=== PATIENT | female | born 1965 | race Caucasian/White ===

== ENCOUNTER → 2019-09-14 08:43 | Outpatient (CLI) | payer BC, SELFPAY ==
--- NOTE | ~2019-09-14 | MMUS_ITS ---
EXAMINATION: MM diagnostic ena BI w kimberly, US breast RT limited, US breast LT complete HISTORY: Follow-up right breast mass TECHNIQUE: Additional 3-D tomosynthesis images of the breasts were performed and synthetic 2-D images were generated. CAD analysis was submitted and interpreted. High resolution bilateral breast ultraso und was performed. COMPARISON: Comparison to multiple prior studies sequentially, with oldest reviewed study dated 01/2017. FINDINGS: MAMMOGRAPHIC FINDINGS: Breast composed of scattered areas of fibroglandular density. There are no suspicious masses, calcifi cations or architectural distortion in either breast to suggest malignancy. Left breast asymmetries a re not significantly changed. ULTRASOUND: Right breast ultrasound: There is a 2 mm cyst at 10:00, 4 cm from the nipple. No suspicious masses to suggest malignancy. Left breast ultrasound: At 1:00, 5 cm from the nipple, there is a 4 mm cyst. At 9:00, 3.5 cm from the nipple, there is an ova l hypoechoic 5 mm mass with circumscribed margins, parallel orientation, no internal vascularity or p osterior features. IMPRESSION: 1. Probable benign left breast mass at 9:00, 3.5 cm from the nipple. No evidence for malignancy in th e right breast. 2. Recommend 6 month follow-up diagnostic left mammogram and ultrasound. BI-RADS category 3, probably benign findings. Reviewed, dictated and finalized at location A. IMPRESSION: 1. Probable benign left breast mass at 9:00, 3.5 cm from the nipple. No evidenc e for malignancy in the right breast. 2. Recommend 6 month follow-up diagnostic left mammogram and ultrasound. BI-RADS category 3, probably benign findings. IMPRESSION: 1. Probable benign left breast mass at 9:00, 3.5 cm from the nipple. No evidenc e for malignancy in the right breast. 2. Recommend 6 month follow-up diagnostic left mammogram and ultrasound. BI-RADS category 3, probably benign findings.
== END ==
PROVIDERS: Visit Provider Obstetrics & Gynecology Gynecology
DX: R92.8 Other abnormal and inconclusive findings on diagnostic imaging of breast (principal)
CPT/HCPCS: 76641; 76642; 77062; 77066; G0279

== ENCOUNTER → 2020-03-12 09:54 | Outpatient (CLI) | payer BC, SELFPAY ==
--- NOTE | ~2020-03-12 | MMUS_ITS ---
EXAMINATION: MM diagnostic ena LT w kimberly, US breast LT limited HISTORY: Six-month follow-up of probable benign left breast 5 mm mass at 9:00 3.5 cm from nipple surg nish TECHNIQUE: Digital ML, MLO and CC full field and spot 3-D tomosynthesis images of the left breast wer e performed and synthetic 2-D images were generated. Rolled medial craniocaudal and rolled lateral cr aniocaudal views. CAD analysis was submitted and interpreted. High resolution upper outer quadrant of the left breast ultrasound was performed. COMPARISON: 09/14/2019 complete left breast ultrasound 06/17/2018 bilateral diagnostic digital mammogram 03/05/2017 bilateral digital screening mammogram BREAST PARENCHYMAL COMPOSITION: There are scattered areas of fibroglandular density. FINDINGS: MAMMOGRAPHIC FINDINGS: No interval new or developing density or any malignant calcification, skin thickening or retraction o f the left breast is evident. ULTRASOUND: 1:00 5 cm from nipple: 1.5 x 4 mm sonolucency without internal vascularity or suspicious posterior sh adowing 1:00 5 cm from nipple: 1.8 x 2.2 mm sonolucency without internal vascularity or suspicious posterior shadowing No suspicious mass or shadowing is noted. No significant new or developing lesion is noted since 09/14/2019. IMPRESSION: 1. No mammographic evidence of malignancy 2. Routine mammographic screening is recommended. BI-RADS Category 2: Benign finding(s). Reviewed, dictated and finalized at location A. IMPRESSION: 1. No mammographic evidence of malignancy 2. Routine mammographic screening is recommended. BI-RADS Category 2: Benign finding(s).
== END ==
PROVIDERS: Visit Provider Obstetrics & Gynecology Gynecology
DX: R92.8 Other abnormal and inconclusive findings on diagnostic imaging of breast (principal)
CPT/HCPCS: 76642; 77061; 77065; G0279

== ENCOUNTER 2020-06-06 07:00 | Outpatient (NON) | payer BC, SELFPAY ==
[2020-06-07 00:27] LABS: SARS-CoV-2 RNA PCR Negative
== END 2020-06-06 07:01 ==
PROVIDERS: PCP Internal Medicine; Visit Provider Physician Assistant
DX: R68.89 Other general symptoms and signs (principal); Z20.828 Contact with and (suspected) exposure to other viral communicable diseases
CPT/HCPCS: 87635; C9803; U0003

== ENCOUNTER 2020-12-28 11:00 | Emergency (ER) | payer BC, SELFPAY ==
--- NOTE | 2020-12-28 11:07 | ED.WOUNDLAC ---
HPI - Wound/Laceration General Chief Complaint: Skin/Abscess/Foreign Body Stated Complaint: INJURED FOOT Time Seen by Provider: 12/28/20 11:07 Source: patient and RN notes reviewed Mode of arrival: ambulatory Limitations: no limitations History of Present Illness HPI narrative: 55-year-old female presents with concern for puncture wound to the right foot. Reports yesterday she was stepping off a ladder when she stepped onto a meg call of a hammer. She reports the wound bled however bleeding has been controlled since last night. She denies any musculoskeletal pain. Denies any redness, swelling surrounding the wound. Denies purulent discharge. Reports she is not up-to-date on her tetanus vaccination. Extremity Location: Right: foot Related Data Home Medications Medication Instructions Recorded Confirmed omeprazole 12/28/20 Allergies Allergy/AdvReac Type Severity Reaction Status Date / Time sulfamethoxazole Allergy Severe FEVER, Verified 12/28/20 11:10 CHILLS latex Allergy Unknown Itching Verified 12/28/20 11:10 sulfamethizole Allergy Unknown Fever Verified 12/28/20 11:10 trimethoprim Allergy Unknown Fever Verified 12/28/20 11:10 Review of Systems Review of Systems: Narrative: CONSTITUTIONAL: Denies malaise, chills, sweats, or fever. SKIN: Reports puncture wound to the right foot MUSCULOSKELETAL: Denies muscle skeletal pain NEUROLOGIC: Denies numbness, weakness All systems reviewed & are unremarkable except as noted in HPI and below PMFSH Family History Family History (Updated 01/24/19 @ 14:17 by DOCTOR UNKNOWN) Mother Depression Patient's mother is in good health Father Patient's father is in good health Patient's father is Sibling Patient's sister is in good health Grandparent Family history of malignant neoplasm of cervix, Onset Age: 40 Other Family history of eczema Family history of irritable bowel syndrome Social History Social History Smoking status: Never smoker Alcohol intake: current Comments At time of signature, agree with nursing past medical, surgical, social and family history. There is no relevant family history pertinent to the presenting complaint Exam Narrative: Exam Narrative: GENERAL: Well-appearing, well-nourished, and in no acute distress. HEAD: Normocephalic, atraumatic. EYES: PERRLA, conjunctivae clear NECK: Supple. CHEST: Speaks in full sentences. No respiratory distress. HEART: Regular rate and rhythm. Normal and equal peripheral pulses. EXTREMITIES: Right foot has normal strength and sensation, normal range of motion. No edema or ecchymosis. 5/5 strength with digit flexion and extension. Normal sensation with sensitivity to light touch and pain. No point tenderness. No skin tenting, no devitalized tissue or atrophy, no trophic changes, no obvious deformity, alignment normal, nearby joints and structures intact. Distal pulses palpable and equal bilaterally, skin warm, dry, pink. Capillary refill less than 3 seconds. SKIN: Warm, dry, no rash. Small puncture wound noted to the pedal aspect of the right foot without surrounding erythema, induration, edema. No purulent drainage noted NEURO: Alert and oriented x3. PSYCH: Normal mood and affect Course Course Emergency Course: Patient is aware of diagnosis, understands and agrees to treatment plan. Anticipatory guidance given. Patient agrees to follow-up as directed and is aware of reasons to seek care at the emergency department. Portions of this record may have been created with voice recognition software Vital Signs Vital signs: Vital Signs Temperature 97.8 F 12/28/20 11:11 Pulse Rate 72 12/28/20 11:11 Respiratory Rate 16 12/28/20 11:11 Blood Pressure 130/84 12/28/20 11:11 Pulse Oximetry 99 12/28/20 11:11 Temperature 97.8 F 12/28/20 11:11 Pulse Rate 72 12/28/20 11:11 Respiratory Rate 16 12/28/20 11:11 Blood Pressure 130/84 12/28/20 11:11 Pul
[2020-12-28 11:11] VITALS: BP 130/84; PULSE 72; RESP 16; TEMP 36.6; O2SAT 99
[2020-12-28] MEDS: TETANUS,DIPHTHERIA,AC PERTUSSIS ADULT (0.5 ML) BOOSTRIX IM (11:29)
== END 2020-12-28 11:50 | disposition home or self-care (01) ==
PROVIDERS: Emergency Provider Nurse Practitioner; PCP Physician Assistant
DX: S91.331A Puncture wound without foreign body, right foot, initial encounter (principal); W45.0XXA Nail entering through skin, initial encounter; Z23 Encounter for immunization; K21.9 Gastro-esophageal reflux disease without esophagitis
CPT/HCPCS: 90471; 90715; 99212; G0463

== ENCOUNTER → 2021-04-21 10:15 | Outpatient (CLI) | payer BC, SELFPAY ==
--- NOTE | ~2021-04-21 | XR_ITS ---
EXAMINATION: XR abdomen/kub 1V INDICATION: Left flank pain TECHNIQUE: Supine views of the abdomen were obtained on 2 radiographs. COMPARISON: None FINDINGS: There is a 2 mm stone of the right mid kidney. No left-sided stones are identified. No ston es project along the expected courses of the ureters or bladder. The visualized lung bases are clear. There is moderate lumbar spondylosis at L4-5. The bowel gas pattern is normal. IMPRESSION: 1. Right nephrolithiasis. Reviewed, dictated and finalized at location A. IMPRESSION: 1. Right nephrolithiasis.
--- NOTE | ~2021-04-21 | CT_ITS ---
EXAMINATION: CT abdomen pelvis wo con DATE: 04/21/2021 10:39 INDICATION: Left flank pain TECHNIQUE: Computed tomography (CT) of the abdomen and pelvis was performed without intravenous contr ast. The dose-length product (DLP) was 698.68 mGy-cm. Automated exposure control and iterative recons truction technique were employed. COMPARISON: 09/16/2011 FINDINGS: The lung bases are clear. The heart size is normal. The distal esophagus is somewhat patulo us and contains ingested material. Cysts of the liver measure up to 3.5 cm in the right hepatic lobe. The spleen, pancreas, and adrenal glands are normal. The gallbladder is decompressed but otherwise u nremarkable in appearance. There is a 2 mm nonobstructing stone of the right mid kidney. The left kid brennan is unremarkable. No stones are present in the ureters or bladder. There is no hydronephrosis or h ydroureter. The appendix is normal. No pathologically enlarged abdominal or pelvic lymph nodes are id entified. There is no free intraperitoneal gas or evidence of bowel obstruction. There is moderate shira mbar spondylosis at L4-5. IMPRESSION: 1. No CT correlate for the patient's symptoms. 2. Nonobstructing right nephrolithiasis. Reviewed, dictated and finalized at location A.
== END ==
PROVIDERS: PCP Physician Assistant; Visit Provider Nurse Practitioner Family
DX: N20.0 Calculus of kidney (principal)
CPT/HCPCS: 74018; 74176

== ENCOUNTER → 2021-05-27 11:19 | Outpatient (CLI) | payer BC, SELFPAY ==
--- NOTE | ~2021-05-27 | MM_ITS ---
EXAMINATION: MM screening ena BI w kimberly HISTORY: Screening mammogram TECHNIQUE: Craniocaudal and mediolateral oblique 3-D tomosynthesis images were obtained and synthetic 2-D images were generated. CAD analysis was submitted and interpreted. COMPARISON: 03/12/2020 diagnostic left mammogram and limited left breast ultrasound 09/14/2019 left complete ultrasound and right Limited breast ultrasound 09/14/2019 bilateral diagnostic mammogram 06/17/2018 bilateral diagnostic mammogram and limited right breast ultrasound 03/26/2017 diagnostic right mammogram and limited right breast ultrasound 03/05/2017 bilateral screening mammogram BREAST PARENCHYMAL COMPOSITION: There are scattered areas of fibroglandular density. FINDINGS: Stable mild fibroglandular asymmetry, not significantly changed since 03/05/2017. There is no evidence of suspicious mass, calcification, or architectural distortion to suggest malignancy in eit her breast. There has been no suspicious interval change. IMPRESSION: 1. No mammographic evidence of malignancy. 2. Recommend routine screening mammography in one year. BI-RADS Category 2: Benign finding(s). Reviewed, dictated and finalized at location A. [employer]
== END ==
PROVIDERS: Visit Provider Obstetrics & Gynecology Gynecology
DX: Z12.31 Encounter for screening mammogram for malignant neoplasm of breast (principal)
CPT/HCPCS: 77063; 77067

== ENCOUNTER → 2021-07-09 09:20 | Outpatient (CLI) | payer BC, SELFPAY ==
--- NOTE | ~2021-07-09 | DEXA_ITS ---
Bone Density Report Name: ALENA ROSALES Age: 55 Sex: Female Ethnicity: White Date of : 1965 Indication: postmenopausal; screening for osteoporosis; height loss; Referring Provider: KAE KEANE Study: Bone densitometry was performed. Exam Date: July 09, 2021 Accession number: [id number] Bone Density: Region BMD T-score Z-score Classification AP Spine (L1-L4) 0.986 -0.6 0.4 Normal Femoral Neck (Left) 0.826 -0.2 0.8 Normal Total Hip (Left) 1.004 0.5 1.1 Normal Femoral Neck (Right) 0.826 -0.2 0.8 Normal Total Hip (Right) 0.952 0.1 0.7 Normal Total Hip Mean 0.978 0.3 0.9 Normal World Health Organization criteria for BMD impression classify patients as: Normal (T-score at or above -1.0), Osteopenia (T-score between -1.0 and -2.5), or Osteoporosis (T-score at or below -2.5). 10-year Fracture Risk: FRAX not reported because: All T-scores for Spine Total, Hip Total, Femoral Neck at or above -1.0 Clinical Information Provided by Patient: Has used the following medications: Vitamin D, Calcium, MTV Patient maximum height was 66.5 Menopause Age: 54 Drinks caffeinated beverages Onset of menses at age 16 Number of children 3 Impression: The patient has normal bone mass. Discussion: BONE DENSITY IS ABOVE THE MINIMUM DESIRABLE LEVEL AT ALL SKELETAL SITES TESTED. This patient?s bone mineral density is above the minimum desirable level (T-score -1.0 or better) at all sites measured. The patient should follow a healthful lifestyle (good nutrition with adequate calcium and vitamin D, and appropriate weight-bearing exercise). Follow-Up: Consider repeating this study in 5 years or sooner if there is some new clinical indication. Reported by: GAB on 07/09/2021 9:51:00 AM. Reviewed, dictated and finalized at location [facility]
== END ==
PROVIDERS: Visit Provider Obstetrics & Gynecology Gynecology
DX: Z78.0 Asymptomatic menopausal state (principal)
CPT/HCPCS: 77080

== ENCOUNTER 2022-03-13 07:28 | Emergency (ER) | payer BC, SELFPAY ==
--- NOTE | ~2022-03-13 | XR_ITS ---
EXAMINATION: CT abdomen pelvis wo con, XR abdomen/kub 1V DATE: 03/13/2022 09:43 INDICATION: Right flank pain, nausea and vomiting TECHNIQUE: 1. Computed tomography (CT) of the abdomen and pelvis was performed without intravenous contrast. Aut omated exposure control and iterative reconstruction technique were employed. The dose-length product was 363.82 mGy-cm. 2. AP view of the abdomen and pelvis was obtained on 2 images. COMPARISON: 04/21/2021 FINDINGS: CT: Lung bases are clear. Heart size is normal. No pericardial or pleural effusion. Couple cysts in the r ight hepatic lobe measuring 3.7 cm and 5 mm. Gallbladder, spleen, pancreas and bilateral adrenal glan ds are normal. 2-3 mm stone at the right ureterovesicular junction with mild right hydroureteronephro sis. Left kidney is normal. No other urolithiasis. Bowels including the appendix are normal. Decompre ssed bladder is normal. The anteverted uterus and bilateral adnexa are normal. No free intraperitonea l gas or fluid. No pathologically enlarged abdominal or pelvic lymphadenopathy. Mild lower lumbar lev ocurvature with moderate to severe right-sided predominant disc height loss at L4-L5. KUB: Subtle small density projecting slightly to the right of the coccyx which could represent the stone a t the right ureterovesicular junction. Normal bowel gas pattern. IMPRESSION: 1. 2-3 mm right ureterovesicular junction stone with mild right hydroureteronephrosis. Reviewed, dictated and finalized at location A. IMPRESSION: 1. 2-3 mm right ureterovesicular junction stone with mild right hydroureteronep hrosis.
[2022-03-13 07:32] VITALS: BP 130/80; PULSE 80; RESP 18; TEMP 36.6; O2SAT 99
--- NOTE | 2022-03-13 07:48 | ED.GENADULT ---
HPI - General Adult General Chief complaint: Abdominal Pain Stated complaint: right flank pain with nausea Time Seen by Provider: 03/13/22 07:43 Source: patient and RN notes reviewed Mode of arrival: ambulatory Limitations: no limitations History of Present Illness HPI narrative: This is a 56 year old female who presents for evaluation of right flank pain. She developed pain 35 minutes ago when she woke up . She describes her pain as sharp pain that is waxing and waning. Her pain is not as bad currently. She has associated nausea with her pain. She denies any fever, chills, urinary symptoms. She has not taken any medication for her pain. She assumes this pain is due to a kidney stone. Related Data Home Medications Medication Instructions Recorded Confirmed omeprazole 20 mg capsule,delayed 20 mg PO DAILY 12/28/20 03/03/22 release omeprazole 10 mg capsule,delayed mg 03/13/22 release omeprazole 20 mg capsule,delayed mg 03/13/22 release Allergies Allergy/AdvReac Type Severity Reaction Status Date / Time sulfamethoxazole Allergy Severe FEVER, Verified 03/13/22 07:34 CHILLS latex Allergy Unknown Itching Verified 03/13/22 07:34 sulfamethizole Allergy Unknown Fever Verified 03/13/22 07:34 trimethoprim Allergy Unknown Fever Verified 03/13/22 07:34 gluten Allergy Other Verified 03/13/22 07:34 Review of Systems Review of Systems: All systems reviewed & are unremarkable except as noted in HPI and below Constitutional: Constitutional: Denies chills, Denies fatigue and Denies fever(s) Cardiovascular: Cardiovascular: Denies chest pain and Denies rapid heart rate Gastrointestinal: Gastrointestinal: Reports abdominal pain, Reports nausea and Denies vomiting Genitourinary: Genitourinary: Denies hematuria, Denies nocturia, Denies dysuria and Reports flank pain Musculoskeletal: Musculoskeletal: Reports back pain [facility] Past Medical History Medical History (Updated 03/13/22 @ 10:41 by Bailey Delgadillo MD) Celiac disease Surgical History Surgical History (Updated 03/13/22 @ 07:49 by Bailey Delgadillo MD) History of tonsillectomy Family History Family History Mother Depression Patient's mother is in good health Father Patient's father is in good health Patient's father is Sibling Patient's sister is in good health Grandparent Family history of malignant neoplasm of cervix, Onset Age: 40 Other Family history of eczema Family history of irritable bowel syndrome Social History Social History Smoking status: Never smoker Alcohol intake: current Exam Const: General: no acute distress and alert Nutritional Appearance: well nourished Orientation/consciousness: patient oriented x3 Limitations: no limitations HENMT: Head: normal to inspection Eyes: EOM: EOMs intact bilaterally Chest: Chest palpation & inspection: normal inspection of the chest Resp: Effort & Inspection: normal respiratory effort Auscultation: clear to auscultation bilaterally Cardio: Rate: regular rate Rhythm: regular rhythm Heart sounds: no murmurs GI: GI Palp: Yes Soft to palpation, Yes Tenderness to palpation present (GI) (Right flank tendernes), No Guarding due to palpation present (GI) and No Rigid due to palpation Auscultation: normal bowel sounds Back/Spine/Pelvis: Back: no CVA tenderness Skin: General skin exam: normal color Rashes: no rashes Wounds: no wounds Neuro: General: patient oriented x3, moves all extremities and CN's II-XI intact bilaterally Cranial nerves: Yes Nystagmus not present Extrem: General: normal to inspection Psych: Mental Status: mental status grossly normal Affect: normal affect Attitude: cooperative Course Reevaluation(s) Reevaluation #1: PAtient is sitting in bed comfortable and no acute distress. I Discussed CT findings an
[2022-03-13 08:09] LABS: Basophils Percent Auto 0.3 % (0.2-1.2); Eosinophils Absolute Auto 0.1 K/mm3 (0-0.3); Hematocrit 43.5 % (37.0-47.0); Hemoglobin 14.5 g/dL (12.0-15.0); Immature Granulocyte Absolute 0.02 K/mm3 (0.00-0.031); Immature Granulocyte Percent A 0.3 % (0-0.5); Lymphocytes Absolute Auto 2.19 K/mm3 (0.9-3.2); Mean Corpuscular HGB Conc 33.3 g/dl (32-36); Mean Corpuscular Hemoglobin 29.1 pg (26-34); Mean Corpuscular Volume 87.2 fl (80-100); Mean Platelet Volume 9.6 fl (7.4-10.4); Monocytes Absolute Auto 0.7 K/mm3 (0.1-0.6); Monocytes Percent Auto 9.6 % (2.6-8.5); Neutrophils Absolute Auto 3.8 K/mm3 (1.3-6.7); Neutrophils Percent Auto 55.8 % (45.5-73.1); Platelet Count Result 229 k/mm3 (150-375); Red Blood Count 4.99 M/mm3 (4.2-5.4); Red Cell Distribution Width 13.9 % (11.5-14.5); White Blood Count 6.9 K/mm3 (4.5-10.0)
[2022-03-13] MEDS: ONDANSETRON INJ 4 MG/2 ML VIAL IV PUSH ×2 (08:18→08:55)
[2022-03-13] MEDS: LACTATED RINGERS 1,000 ML 999 ML IV CONT (08:19)
[2022-03-13 08:30] LABS: Alanine Aminotransferase 27 U/L (6-35); Albumin Level 4.7 g/dL (3.5-5.1); Alkaline Phosphatase 68 U/L (38-126); Anion Gap 16 mmol/L (8-16); Aspartate Amino Transferase 28 U/L (14-36); Bilirubin,Total 0.7 mg/dL (0.2-1.3); Blood Urea Nitrogen 10 mg/dL (7-17); Calcium 9.2 mg/dL (8.4-10.2); Carbon Dioxide 25 mmol/L (22-30); Chloride 103 mmol/L (98-107); Estimated CRCL calculation 66 ml/min; Estimated Glomerular Filt Rate > 60; Glucose 106 mg/dL (65-110); Lipase 102 U/L (23-300); Potassium 3.7 mmol/L (3.4-5.0); Sodium 144 mmol/L (137-145)
[2022-03-13 08:41] LABS: Appearance Urine Clear (Clear); Bilirubin Urine 1+ (Negative); Blood Urine 2+ (Negative); Color Urine Yellow (Yellow); Glucose Urine UA Negative (Negative); Ketones Urine Negative (Negative); Leukocyte Esterase Ur Trace LEU/UL (Negative); Nitrate Urine Negative (Negative); Protein Urine 1+ mg/dL (Negative); Specific Grav Ur >= 1.030 (1.001-1.035); Urobilinogen Urine 0.2 mg/dL (<2.0)
[2022-03-13 08:44] LABS: Bacteria Urine Trace /hpf; Mucus Urine Moderate /lpf; RBC Urine >75 /hpf (0-2); Squamous Epithelial Cell Urine Few /hpf (Few)
[2022-03-13 08:47] LABS: Add Urine Microscopic? YES
[2022-03-13] MEDS: MORPHINE SULFATE (*CRX) 4 MG/ML INJ IV PUSH (09:00)
--- NOTE | 2022-03-13 09:39 | PC.NURSE ---
PT STATES SHE WILL ATTEMPT TO LIE FLAT ON CT TABLE FOR IMAGING.
[2022-03-13] MEDS: KETOROLAC 30 MG/ML VIAL (*BKC) IV PUSH (09:55)
[2022-03-13 11:05] VITALS: BP 122/69; PULSE 64; RESP 16; O2SAT 100
== END 2022-03-13 11:05 | disposition home or self-care (01) ==
PROVIDERS: Emergency Provider General Practice; PCP Physician Assistant
DX: N13.2 Hydronephrosis with renal and ureteral calculous obstruction (principal); E86.0 Dehydration; K90.0 Celiac disease
CPT/HCPCS: 36415; 74018; 74176; 80053; 81001; 81025; 83690; 85025; 87086; 87088; 96361; 96365; 96375; 96376; 99284; J0131; J1885; J2270; J2405; J7120

== ENCOUNTER 2022-03-14 13:55 | Emergency (ER) | payer BC, SELFPAY ==
--- NOTE | ~2022-03-14 | XR_ITS ---
EXAM: XR abdomen/kub 1V DATE: 03/14/2022 16:05 HISTORY: right flank pain, n/v . COMPARISON: CT abdomen pelvis 03/13/2022. X-ray abdomen 03/13/2022 FINDINGS: Normal bowel gas pattern. No organomegaly. 3 mm calcification to the right of the coccyx. Regional bones and soft tissues normal for age. IMPRESSION: Likely stable right UVJ stone. Reviewed, dictated and finalized at location K.
[2022-03-14 13:56] VITALS: BP 144/78; PULSE 69; RESP 14; TEMP 36.7; O2SAT 100
[2022-03-14 14:13] LABS: Basophils Percent Auto 0.1 % (0.2-1.2); Eosinophils Percent Auto 0.2 % (0-4.4); Hemoglobin 13.2 g/dL (12.0-15.0); Immature Granulocyte Absolute 0.02 K/mm3 (0.00-0.031); Immature Granulocyte Percent A 0.2 % (0-0.5); Lymphocytes Absolute Auto 1.32 K/mm3 (0.9-3.2); Mean Corpuscular Hemoglobin 28.8 pg (26-34); Mean Corpuscular Volume 87.3 fl (80-100); Mean Platelet Volume 9.2 fl (7.4-10.4); Monocytes Absolute Auto 0.8 K/mm3 (0.1-0.6); Monocytes Percent Auto 9.1 % (2.6-8.5); Neutrophils Absolute Auto 6.1 K/mm3 (1.3-6.7); Neutrophils Percent Auto 74.4 % (45.5-73.1); Platelet Count Result 174 k/mm3 (150-375); Red Blood Count 4.58 M/mm3 (4.2-5.4); Red Cell Distribution Width 13.7 % (11.5-14.5); White Blood Count 8.2 K/mm3 (4.5-10.0)
[2022-03-14 14:20] LABS: Appearance Urine Clear (Clear); Bilirubin Urine 1+ (Negative); Blood Urine 2+ (Negative); Color Urine Yellow (Yellow); Glucose Urine UA Negative (Negative); Ketones Urine Trace mg/dL (Negative); Leukocyte Esterase Ur Trace LEU/UL (Negative); Nitrate Urine Negative (Negative); Protein Urine 2+ mg/dL (Negative); Specific Grav Ur 1.015 (1.001-1.035); Urobilinogen Urine 0.2 mg/dL (<2.0); pH Urine 6.5 (5.0-9.0)
[2022-03-14 14:23] LABS: Alanine Aminotransferase 26 U/L (6-35); Albumin Level 4.3 g/dL (3.5-5.1); Alkaline Phosphatase 70 U/L (38-126); Anion Gap 11 mmol/L (8-16); Aspartate Amino Transferase 29 U/L (14-36); Bilirubin,Total 0.6 mg/dL (0.2-1.3); Blood Urea Nitrogen 15 mg/dL (7-17); Calcium 9.6 mg/dL (8.4-10.2); Carbon Dioxide 27 mmol/L (22-30); Chloride 101 mmol/L (98-107); Estimated CRCL calculation 45 ml/min; Estimated Glomerular Filt Rate 47; Glucose 111 mg/dL (65-110); Lipase 81 U/L (23-300); Potassium 4.1 mmol/L (3.4-5.0); Sodium 139 mmol/L (137-145)
[2022-03-14 14:24] LABS: Mucus Urine Few /lpf; RBC Urine >75 /hpf (0-2); Squamous Epithelial Cell Urine Occasional /hpf (Few); WBC Urine 21-30 /hpf
[2022-03-14 14:30] LABS: Add Urine Microscopic? YES
[2022-03-14] MEDS: SODIUM CHLORIDE 0.9% IV 1,000 ML 999 ML IV CONT ×2 (15:17→15:57)
[2022-03-14] MEDS: METOCLOPRAMIDE HCL INJ 10 MG/2 ML VIAL IV PUSH (15:18)
--- NOTE | 2022-03-14 15:51 | ED.NAVMDI ---
HPI - Nausea/Vomiting/Diarrhea General Chief complaint: Nausea/Vomiting/Diarrhea Stated complaint: vomiting Time Seen by Provider: 03/14/22 14:41 Source: patient, RN notes reviewed and old records reviewed Mode of arrival: ambulatory Limitations: no limitations History of Present Illness HPI Narrative: This is a 56 year old female who presents for evaluation of nausea and vomiting. Patient was diagnosed with right distal ureteral calculus yesterday, and she was discharged with antiemetic and pain medication. She reports developing worsening pain with nausea and vomiting at 4 am. She took toradol at that time and she took hydrocodone at 10 am this morning. SHe denies she has been unable keep anything down since this morning. She reports mild dull ache to right flank , but she reports her pain is not that bad currently. She reports headache from vomiting today. She denies fever or chills. Related Data Home Medications Medication Instructions Recorded Confirmed omeprazole 20 mg capsule,delayed 20 mg PO DAILY 12/28/20 03/03/22 release omeprazole 10 mg capsule,delayed mg 03/13/22 release omeprazole 20 mg capsule,delayed mg 03/13/22 release Allergies Allergy/AdvReac Type Severity Reaction Status Date / Time sulfamethoxazole Allergy Severe FEVER, Verified 03/14/22 14:42 CHILLS latex Allergy Unknown Itching Verified 03/14/22 14:42 sulfamethizole Allergy Unknown Fever Verified 03/14/22 14:42 trimethoprim Allergy Unknown Fever Verified 03/14/22 14:42 gluten Allergy Other Verified 03/14/22 14:42 Review of Systems Review of Systems: All systems reviewed & are unremarkable except as noted in HPI and below Constitutional: Constitutional: Denies chills, Denies fatigue and Denies fever(s) Cardiovascular: Cardiovascular: Denies chest pain Respiratory: Respiratory: Denies chest congestion and Denies cough Gastrointestinal: Gastrointestinal: Denies abdominal pain, Reports nausea and Reports vomiting Genitourinary: Genitourinary: Denies dysuria and Reports flank pain Musculoskeletal: Musculoskeletal: Reports back pain Neurologic: Denies weakness PMF Past Medical History Medical History (Updated 03/14/22 @ 17:31 by Bailey Delgadillo MD) Celiac disease Surgical History Surgical History (Updated 03/13/22 @ 07:49 by Bailey Delgadillo MD) History of tonsillectomy Family History Family History Mother Depression Patient's mother is in good health Father Patient's father is in good health Patient's father is Sibling Patient's sister is in good health Grandparent Family history of malignant neoplasm of cervix, Onset Age: 40 Other Family history of eczema Family history of irritable bowel syndrome Social History Social History Smoking status: Never smoker Alcohol intake: current Exam Const: General: no acute distress Nutritional Appearance: well nourished Orientation/consciousness: patient oriented x3 Limitations: no limitations HENMT: Head: normal to inspection Eyes: EOM: EOMs intact bilaterally Resp: Effort & Inspection: normal respiratory effort GI: GI Palp: Yes Soft to palpation, No Tenderness to palpation present (GI), No Guarding due to palpation present (GI) and No Rigid due to palpation Auscultation: normal bowel sounds : General: Yes CVA tenderness on the right Back/Spine/Pelvis: Back: CVA tenderness Skin: General skin exam: normal color Rashes: no rashes Wounds: no wounds Neuro: General: patient oriented x3, moves all extremities and CN's II-XI intact bilaterally Extrem: General: normal to inspection Psych: Mental Status: mental status grossly normal Affect: normal affect Attitude: cooperative Course Reevaluation(s) Reevaluation #1: Patient reports she feels much better. She denies nausea or pain.
[2022-03-14] MEDS: KETOROLAC 30 MG/ML VIAL (*BKC) IV PUSH (15:56)
[2022-03-14] MEDS: diphenhydrAMINE HCl INJ 50 MG/ML VIAL 25 MG IV PUSH (15:58)
[2022-03-14] MEDS: TAMSULOSIN HCL 0.4 MG CAPSULE PO (17:06)
[2022-03-14 17:39] VITALS: BP 132/74; PULSE 82; RESP 16; O2SAT 99
== END 2022-03-14 17:41 | disposition home or self-care (01) ==
PROVIDERS: Emergency Provider General Practice; PCP Physician Assistant
DX: R11.2 Nausea with vomiting, unspecified (principal); N23 Unspecified renal colic; K90.0 Celiac disease
CPT/HCPCS: 36415; 74018; 80053; 81001; 81025; 83690; 85025; 87086; 96361; 96374; 96375; 99284; A9270; J1200; J1885; J2765; J7030

== ENCOUNTER 2022-03-19 11:19 | Emergency (ER) | payer BC, SELFPAY ==
--- NOTE | ~2022-03-19 | CT_ITS ---
EXAMINATION: CT brain wo con DATE: 03/19/2022 13:22 INDICATION: Severe headache for several days TECHNIQUE: Computed tomography (CT) of the head was performed without intravenous contrast. The mA wa s adjusted according to patient size. Iterative reconstruction technique was employed. Exam dose: 60 5.33 mGy-cm total exam DLP. COMPARISON: None FINDINGS: No intracranial mass lesion or hemorrhage or cerebrovascular accident. No midline shift or mass effect. Normal davenport-white matter differentiation. Normal ventricular size. No subdural or epidural hematoma. The orbital contents are unremarkable. Mastoid air cells and included paranasal sinuses are unremarkable. No fracture or bone destruction of the cranial vault. IMPRESSION: No significant abnormality Reviewed, dictated and finalized at [facility]. Reviewed, dictated and finalized at location [facility]. IMPRESSION: No significant abnormality
[2022-03-19 11:33] VITALS: BP 150/79; PULSE 69; RESP 16; TEMP 36.7; O2SAT 100
--- NOTE | 2022-03-19 12:31 | ED.HA ---
HPI - Headache General Chief Complaint: Headache Stated Complaint: Headache Time Seen by Provider: 03/19/22 12:02 History of Present Illness HPI Narrative: Patient is a 56-year-old female with a history of GERD presenting with a headache. Patient states that she was seen here about a week ago and was diagnosed with a kidney stone. She was able to go home but then she unfortunately had to return after developing a headache after throwing up. She improved and was able to go home. She passed the stone about 4 days ago. Last night, patient again became very nauseated and thought she was going to vomit. She instead developed the worst headache of her life. States that it has been throbbing constantly since then. She called her PCP this morning who advised she come in for evaluation. Patient denies fevers, numbness or weakness, vision changes, nuchal rigidity. No chest pain, cough, shortness of breath, abdominal pain, dysuria, diarrhea, leg swelling. Related Data Home Medications Medication Instructions Recorded Confirmed omeprazole 20 mg capsule,delayed 20 mg PO DAILY 12/28/20 03/03/22 release omeprazole 10 mg capsule,delayed mg 03/13/22 release omeprazole 20 mg capsule,delayed mg 03/13/22 release Allergies Allergy/AdvReac Type Severity Reaction Status Date / Time sulfamethoxazole Allergy Severe FEVER, Verified 03/19/22 12:44 CHILLS latex Allergy Unknown Itching Verified 03/19/22 12:44 sulfamethizole Allergy Unknown Fever Verified 03/19/22 12:44 trimethoprim Allergy Unknown Fever Verified 03/19/22 12:44 gluten Allergy Other Verified 03/19/22 12:44 Review of Systems Review of Systems: All systems reviewed & are unremarkable except as noted in HPI and below PMFSH Past Medical History Medical History Celiac disease Surgical History Surgical History History of tonsillectomy Family History Family History Mother Depression Patient's mother is in good health Father Patient's father is in good health Patient's father is Sibling Patient's sister is in good health Grandparent Family history of malignant neoplasm of cervix, Onset Age: 40 Other Family history of eczema Family history of irritable bowel syndrome Social History Social History Smoking status: Never smoker Alcohol intake: current Exam Narrative: GENERAL: Well-appearing, well-nourished, and in no acute distress. HEAD: Normocephalic, atraumatic. EYES: PERRLA and EOMI. ENT: Nares clear, no rhinorrhea or epistaxis. Mucous membranes moist. NECK: Supple. CHEST: Clear to auscultation. No respiratory distress. HEART: Regular rate and rhythm. No murmur heard. Normal peripheral pulses. ABDOMEN: Soft, nontender, nondistended, normal active bowel sounds. EXTREMITIES: Normal range of motion. No edema. SKIN: Warm, dry, no rash. NEURO: Alert and oriented x3. R sided cranial nerve 7 deficits which are baseline per patient, no other focal deficits PSYCH: Normal mood and affect. Course Vital Signs Vital signs: Vital Signs Temperature 98.1 F 03/19/22 11:33 Pulse Rate 69 03/19/22 11:33 Respiratory Rate 16 03/19/22 11:33 Blood Pressure 150/79 H 03/19/22 11:33 Pulse Oximetry 100 03/19/22 11:33 Temperature 98.1 F 03/19/22 11:33 Pulse Rate 64 03/19/22 16:36 Respiratory Rate 16 03/19/22 16:36 Blood Pressure 137/81 03/19/22 16:36 Pulse Oximetry 100 03/19/22 16:36 Oxygen Delivery Room Air 03/19/22 12:42 MDM - Headache MDM Narrative Medical decision making narrative: Patient is a 56-year-old female presenting with a headache. Patient is hypertensive, otherwise vitals are within normal limits. Exam remarkable for the above. Plan for labs, C
[2022-03-19 12:42] VITALS: BP 172/93; PULSE 66; RESP 20; O2SAT 99
[2022-03-19] MEDS: diphenhydrAMINE HCl INJ 50 MG/ML VIAL IV PUSH (13:12)
[2022-03-19] MEDS: PROCHLORPERAZINE EDISYLATE 10 MG/2 ML VIAL IV PUSH (13:12)
[2022-03-19] MEDS: KETOROLAC 15 MG/ML VIAL (*BKC) IV PUSH (13:12)
[2022-03-19 13:15] LABS: Basophils Percent Auto 0.3 % (0.2-1.2); Eosinophils Absolute Auto 0.1 K/mm3 (0-0.3); Eosinophils Percent Auto 1.6 % (0-4.4); Hematocrit 42.5 % (37.0-47.0); Hemoglobin 13.7 g/dL (12.0-15.0); Immature Granulocyte Absolute 0.02 K/mm3 (0.00-0.031); Immature Granulocyte Percent A 0.3 % (0-0.5); Lymphocytes Absolute Auto 1.85 K/mm3 (0.9-3.2); Lymphocytes Percent Auto 29.7 % (18.3-44.2); Mean Corpuscular HGB Conc 32.2 g/dl (32-36); Mean Corpuscular Hemoglobin 28.8 pg (26-34); Mean Corpuscular Volume 89.3 fl (80-100); Mean Platelet Volume 9.4 fl (7.4-10.4); Monocytes Absolute Auto 0.6 K/mm3 (0.1-0.6); Monocytes Percent Auto 9.8 % (2.6-8.5); Neutrophils Absolute Auto 3.6 K/mm3 (1.3-6.7); Neutrophils Percent Auto 58.3 % (45.5-73.1); Platelet Count Result 213 k/mm3 (150-375); Red Blood Count 4.76 M/mm3 (4.2-5.4); Red Cell Distribution Width 13.7 % (11.5-14.5); White Blood Count 6.2 K/mm3 (4.5-10.0)
[2022-03-19] MEDS: SODIUM CHLORIDE 0.9% IV 1,000 ML 999 ML IV CONT (13:16)
[2022-03-19 13:25] LABS: Alanine Aminotransferase 26 U/L (6-35); Albumin Level 4.5 g/dL (3.5-5.1); Alkaline Phosphatase 76 U/L (38-126); Anion Gap 12 mmol/L (8-16); Aspartate Amino Transferase 25 U/L (14-36); Bilirubin,Total 0.5 mg/dL (0.2-1.3); Blood Urea Nitrogen 12 mg/dL (7-17); Calcium 9.5 mg/dL (8.4-10.2); Carbon Dioxide 25 mmol/L (22-30); Chloride 104 mmol/L (98-107); Estimated CRCL calculation 74 ml/min; Estimated Glomerular Filt Rate > 60; Glucose 93 mg/dL (65-110); Potassium 4.3 mmol/L (3.4-5.0); Sodium 141 mmol/L (137-145)
[2022-03-19 14:11] VITALS: BP 152/73; PULSE 51; RESP 18; O2SAT 99
[2022-03-19 16:36] VITALS: BP 137/81; PULSE 64; RESP 16; O2SAT 100
== END 2022-03-19 16:38 | disposition home or self-care (01) ==
PROVIDERS: Emergency Provider Emergency Medicine; PCP Physician Assistant
DX: R51.9 Headache, unspecified (principal); K90.0 Celiac disease; Z87.442 Personal history of urinary calculi
CPT/HCPCS: 36415; 70450; 80053; 85025; 96361; 96374; 96375; 99284; J0780; J1100; J1200; J1885; J7030

== ENCOUNTER → 2022-04-01 11:43 | Outpatient (CLI) | payer BC, SELFPAY ==
--- NOTE | ~2022-04-01 | US_ITS ---
EXAMINATION: US retroperitoneal comp DATE: 04/01/2022 11:59 INDICATION: Right ureteral stone which passed to weeks prior. TECHNIQUE: Multiple ultrasound grayscale images of the kidneys were obtained. COMPARISON: CT dated 03/13/2022 FINDINGS: The right kidney measures 9.7 x 4.4 x 5.4 cm. The left kidney measures 10.0 x 4.5 x 4.2 cm. The kidne ys demonstrate normal echogenicity. There is no hydronephrosis in either kidney. No stones identifie d. The bladder is normal. IMPRESSION: 1. Normal kidneys without hydronephrosis. Reviewed, dictated and finalized at location [facility].
== END ==
PROVIDERS: PCP Internal Medicine; Visit Provider Nurse Practitioner Family
DX: N20.1 Calculus of ureter (principal)
CPT/HCPCS: 76770

== ENCOUNTER → 2022-06-26 15:41 | Outpatient (CLI) | payer BC, SELFPAY ==
--- NOTE | ~2022-06-26 | MM_ITS ---
EXAMINATION: MM screening ena BI w kimberly HISTORY: Screening mammogram TECHNIQUE: Craniocaudal and mediolateral oblique 3-D tomosynthesis images were obtained and synthetic 2-D images were generated. CAD analysis was submitted and interpreted. COMPARISON: 05/27/2021 bilateral screening mammogram examination 03/12/2020 diagnostic left mammogram and left breast ultrasound examination 09/14/2019 bilateral diagnostic mammogram and bilateral breast ultrasound examination 03/05/2017 bilateral screening mammogram BREAST PARENCHYMAL COMPOSITION: There are scattered areas of fibroglandular density. FINDINGS: Stable fibroglandular asymmetry since 05/27/2021. There is no evidence of suspicious mass, calcification, or architectural distortion to suggest malignancy in either breast. There has been no suspicious interval change. IMPRESSION: 1. No mammographic evidence of malignancy. 2. Recommend routine screening mammography in one year. BI-RADS Category 2: Benign finding(s). Reviewed, dictated and finalized at location A. [employer]EC[employer] DIRECTOR
== END ==
PROVIDERS: PCP Internal Medicine; Visit Provider Nurse Practitioner
DX: Z12.31 Encounter for screening mammogram for malignant neoplasm of breast (principal)
CPT/HCPCS: 77063; 77067

== ENCOUNTER 2023-04-19 15:56 | Emergency (ER) | payer BC, SELFPAY ==
--- NOTE | 2023-04-19 17:15 | ED.GENADULT ---
HPI - General Adult General Chief complaint: Wound/Laceration Stated complaint: lacs on B pointer fingres from pairing knife Time Seen by Provider: 04/19/23 16:27 History of Present Illness HPI narrative: Leslie Fisher is a 57 y/o female who presents with reports of using a new knife today and cut her left index finger and then tried to clean the knife and cut the top of her right index finger. 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 Related Data Home Medications Medication Instructions Recorded Confirmed omeprazole 20 mg capsule,delayed 20 mg PO DAILY 12/28/20 03/03/22 release omeprazole 10 mg capsule,delayed mg 03/13/22 release omeprazole 20 mg capsule,delayed mg 03/13/22 release Allergies Allergy/AdvReac Type Severity Reaction Status Date / Time sulfamethoxazole Allergy Severe FEVER, Verified 03/19/22 12:44 CHILLS latex Allergy Unknown Itching Verified 03/19/22 12:44 sulfamethizole Allergy Unknown Fever Verified 03/19/22 12:44 trimethoprim Allergy Unknown Fever Verified 03/19/22 12:44 gluten Allergy Other Verified 03/19/22 12:44 Review of Systems Review of Systems: All systems reviewed & are unremarkable except as noted in HPI and below PMFSH Past Medical History Medical History Celiac disease Surgical History Surgical History History of tonsillectomy Family History Family History Mother Depression Patient's mother is in good health Father Patient's father is in good health Patient's father is Sibling Patient's sister is in good health Grandparent Family history of malignant neoplasm of cervix, Onset Age: 40 Other Family history of eczema Family history of irritable bowel syndrome Social History Social History Smoking status: Never smoker Alcohol intake: current Exam Const: General: healthy appearing Nutritional Appearance: well nourished Orientation/consciousness: patient oriented x3 HENMT: Head: normal to inspection Ears: external ears normal Face/Nose/Sinus: Normal external nose present Eyes: Conjunctivae: conjunctivae normal and conjunctival abnormality Neck: Neck: normal visual inspection Chest: Chest palpation & inspection: normal inspection of the chest Resp: Effort & Inspection: normal respiratory effort Auscultation: clear to auscultation bilaterally Cardio: Rate: regular rate Skin: General skin exam: normal color Neuro: General: patient oriented x3, moves all extremities, no meningeal signs, no focal motor deficits and CN's II-XI intact bilaterally Extrem: General: normal to inspection Procedures Laceration Laceration 1: Date: 04/19/23 Time: 17:00 Site: hand Side (If applicable): left Size (cm): 1 Description: linear Depth: simple, single layer Pre-repair: wound explored and irrigated ====== Skin Level ====== Skin layer closed with: dermabond ====== Subcutaneous Layer ====== ====== Muscle Layer ====== ====== Tendon Layer ====== Laceration 2: Date: 04/19/23 Time: 17:15 Side (If applicable): right Size (cm): 1 Description: linear Depth: simple, single layer Pre-repair: wound explored and irrigated ====== Skin Level ====== Skin layer closed with: dermabond ====== Subcutaneous Layer ====== ====== Muscle Layer ====== ====== Tendon Layer ====== Medical Decision Making MDM Narrative Medical decision making narrative: 1 cm laceration to the left index finger and 1cm laceration to the right index finger. No active bleeding ROM intact pulses intact wound thoroughly cleansed with wound cleanser and then closed with dermab
== END 2023-04-19 17:42 | disposition home or self-care (01) ==
PROVIDERS: Emergency Provider Nurse Practitioner Family; PCP Internal Medicine
DX: S61.211A Laceration without foreign body of left index finger without damage to nail, initial encounter (principal); S61.210A Laceration without foreign body of right index finger without damage to nail, initial encounter; K90.0 Celiac disease; W26.0XXA Contact with knife, initial encounter
CPT/HCPCS: 12001; 99283

== ENCOUNTER → 2023-07-16 13:14 | Outpatient (CLI) | payer BC, SELFPAY ==
--- NOTE | ~2023-07-16 | MM_ITS ---
EXAMINATION: MM screening ena BI w kimberly HISTORY: Screening TECHNIQUE: Craniocaudal and mediolateral oblique 3-D tomosynthesis images were obtained and synthetic 2-D images were generated. CAD analysis was submitted and interpreted. COMPARISON: Comparison to multiple prior studies sequentially, with oldest reviewed study dated 09/13. BREAST PARENCHYMAL COMPOSITION: Breast composed of scattered areas of fibroglandular density FINDINGS: There is no evidence of suspicious mass, calcification, or architectural distortion to sugg est malignancy in either breast. There has been no suspicious interval change. IMPRESSION: 1. No mammographic evidence of malignancy. 2. Recommend routine screening mammography in one year. BI-RADS Category 1: Negative Reviewed, dictated and finalized at location A. MARKER
== END ==
PROVIDERS: PCP Nurse Practitioner; Visit Provider Nurse Practitioner
DX: Z12.31 Encounter for screening mammogram for malignant neoplasm of breast (principal)
CPT/HCPCS: 77063; 77067

== ENCOUNTER 2024-10-25 12:23 | Outpatient (CLI) | payer BC, SELFPAY ==
--- NOTE | ~2024-10-25 | MM_ITS ---
EXAMINATION: MM screening ena BI w kimberly HISTORY: Screening TECHNIQUE: Craniocaudal and mediolateral oblique 3-D tomosynthesis images were obtained and synthetic 2-D images were generated. CAD analysis was submitted and interpreted. COMPARISON: Comparison to multiple prior studies sequentially, with oldest reviewed study dated 05/29. BREAST PARENCHYMAL COMPOSITION: Not dense: There are scattered areas of fibroglandular density. FINDINGS: There is no evidence of suspicious mass, calcification, or architectural distortion to sugg est malignancy in either breast. There has been no suspicious interval change. IMPRESSION: 1. No mammographic evidence of malignancy. 2. Recommend routine screening mammography in one year. BI-RADS Category 1: Negative Reviewed, dictated and finalized at location A.
== END 2024-10-25 12:24 | disposition home or self-care (01) ==
LOC: MICIMG 12:24
PROVIDERS: PCP Obstetrics & Gynecology Gynecology; Visit Provider Obstetrics & Gynecology Gynecology
DX: Z12.31 Encounter for screening mammogram for malignant neoplasm of breast (principal)
CPT/HCPCS: 77063; 77067